=== PATIENT | male | born 2000 | race American Indian/Alaskan Native ===

== ENCOUNTER 2021-12-11 01:44 | Emergency (ER) | payer OTHER ==
[2021-12-11 02:13] VITALS: BP 121/65
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
== END 2021-12-11 04:34 ==
LOC: ED 01:44
DX: S60.511A Abrasion of right hand, initial encounter (principal); M25.571 Pain in right ankle and joints of right foot; H53.8 Other visual disturbances; V87.7XXA Person injured in collision between other specified motor vehicles (traffic), initial encounter; Y93.89 Activity, other specified; Y92.488 Other paved roadways as the place of occurrence of the external cause; Y99.8 Other external cause status
CPT/HCPCS: 99283